=== PATIENT | male | born 1965 | race Caucasian/White ===

== ENCOUNTER → 2020-08-31 12:45 | Outpatient (CLI) | payer OTHER, SELFPAY ==
[2020-08-31] MEDS: COVID-19 VACC #1, MRNA(MOD) 100 MCG/0.5 ML VIAL IM (12:53)
== END ==
PROVIDERS: Family Provider Family Medicine; PCP Family Medicine; Visit Provider Internal Medicine
DX: Z23 Encounter for immunization (principal)
CPT/HCPCS: 0011A; 91301

== ENCOUNTER → 2020-09-29 12:47 | Outpatient (CLI) | payer OTHER, SELFPAY ==
[2020-09-29] MEDS: COVID-19 VACC #2, MRNA(MOD) 100 MCG/0.5 ML VIAL IM (12:55)
== END ==
PROVIDERS: Family Provider Family Medicine; PCP Family Medicine; Visit Provider Internal Medicine
DX: Z23 Encounter for immunization (principal)
CPT/HCPCS: 0012A; 91301

== ENCOUNTER 2021-08-04 17:26 | Emergency (ER) | payer SELFPAY ==
[2021-08-04 17:31] VITALS: BP 148/101; PULSE 132; RESP 19; TEMP 36.6; O2SAT 95; BMI 29.5
[2021-08-04 21:48] VITALS: BP 170/101; PULSE 113; RESP 17; O2SAT 98
[2021-08-04] MEDS: SODIUM CHLORIDE 0.9% 1,000 ML 1000 ML IV (22:01)
[2021-08-04 22:06] LABS: Add Manual Diff / Slide Review NO; Basophils Absolute Auto 100 /uL (0-100); Basophils Percent Auto 0.8 % (0-2); Eosinophils Absolute Auto 0 /uL (0-450); Eosinophils Percent Auto 0.3 % (2-4); Hematocrit 39.3 % (41-53); Hemoglobin 13.2 g/dL (13.5-17.5); Lymphocytes Absolute Auto 1500 /uL (1100-4500); Lymphocytes Percent Auto 12.5 % (25-40); Mean Corpuscular HGB Conc 33.5 % (30-36); Mean Corpuscular Hemoglobin 32.8 PG (26-34); Mean Corpuscular Volume 97.7 fL (80-100); Monocytes Absolute Auto 900 /uL (0-900); Monocytes Percent Auto 7.1 % (3-14); Neutrophils Absolute Auto 9700 /uL (1500-7000); Neutrophils Percent Auto 79.3 % (50-75); Platelet Count 199 X10^3/uL (150-400); Red Blood Cell Count 4.03 X10^6/uL (4.5-5.9); Red Cell Distribution Width 13.4 % (11.6-14.8); White Blood Cell Count 12.3 X10^3/uL (4.5-11.0)
[2021-08-04 23:26] VITALS: BP 117/82; PULSE 98; RESP 16
--- NOTE | 2021-08-05 00:06 | ED_ITS ---
HPI - Epistaxis General Chief complaint: Nasal Problem Stated complaint: NOSE BLEED Time Seen by Provider: 08/05/21 00:05 Source: patient Mode of arrival: Ambulatory History of Present Illness HPI Narrative: Patient is a 56-year-old male with no past medical history presenting today with epistaxis. He said he was at work when nose started from the right side. He had copious amounts of blood going into the sink and trash can. He try clamping and holding pressure it was not stopping. He waited in the emergency department for numerous hours he was noted to be tachycardic. Finally bleeding stopped. Heart rate improved hemoglobin hematocrit does not require any transfusion at this time. He is not on any anti-platelet or anticoagulation medication Related Data Home Medications Medication Instructions Recorded Confirmed No Known Home Medications 08/04/21 08/04/21 Allergies Allergy/AdvReac Type Severity Reaction Status Date / Time Sulfa (Sulfonamide Allergy Unknown Verified 08/04/21 17:34 Antibiotics) [SULFA (SULFONAMIDE ANTIBIOTICS)] Review of Systems Review of Systems Narrative: GENERAL: Denies chills,fever HEENT: See HPI RESPIRATORY: Denies dyspnea, cough, wheezing CARDIOVASCULAR: Denies chest pain, palpitations GASTROINTESTINAL: Denies nausea, vomiting MUSCULOSKELETAL: Denies extremity pain, injury SKIN: No rash, no laceration, no pruritus NEUROLOGIC: Denies weakness, dizziness, headache, numbness 8 point review of systems is negative except for those stated above and HPI Patient History Surgical History History of vasectomy Social History Smoking Status: Current every day smoker Smoking Status: Current every day smoker alcohol intake frequency: a few times a week Substance Use Type: marijuana Exam Initial Vital Signs Initial Vital Signs: Vital Signs Temperature 98 F 08/04/21 17:31 Pulse Rate 132 H 08/04/21 17:31 Respiratory Rate 19 08/04/21 17:31 Blood Pressure 148/101 H 08/04/21 17:31 Pulse Oximetry 95 08/04/21 17:31 GENERAL: Well-appearing, well-nourished and in no acute distress. NOSE: No active bleeding, no blood clot CARDIOVASCULAR: peripheral pulses in tact, cap refill <2 sec RESPIRATORY: No respiratory distress, speaks in full sentences without difficulty EXTREMITIES: Normal range of motion, no clubbing or edema. Neurovascularly intact NEUROLOGICAL: Cranial nerves II through XII grossly intact. Normal gait and speech. SKIN: Warm, dry, no petechiae, no rashes or lesions. Course Orders Ordered: ED Orders 08/04/21 21:49 CBC Auto Diff [Complete Blood Count AUTO DIFF] Stat Discontinued Medications Sodium Chloride (Normal Saline 0.9%) 1,000 mls @ 1,000 mls/hr IV BOLUS ONE Stop: 08/04/21 22:48 Last Infusion: 08/04/21 23:00 Dose: 0 mls/hr Documented by: Admin: 08/04/21 22:01 Dose: 1,000 mls/hr Documented by: KANDICE Oxymetazoline HCl (Oxymetazoline Nasal [place] 15 Ml) 2 sprays NASAL NOW ONE Stop: 08/05/21 00:26 Last Admin: 08/05/21 00:44 Dose: 2 sprays Documented by: WING Vital Signs Vital signs: Vital Signs - 8 hr 08/04/21 21:48 08/04/21 23:26 Pulse Rate 113 H 98 H Respiratory Rate 17 16 Blood Pressure 170/101 H 117/82 Pulse Oximetry 98 MDM - Epistaxis Lab Data Result diagrams: 08/04/21 21:49 Labs: Lab Results 08/04/21 Range/Units 21:49 WBC 12.3 H (4.5-11.0) X10^3/uL RBC 4.03 L (4.5-5.9) X10^6/uL Hgb 13.2 L (13.5-17.5) g/dL Hct 39.3 L (41-53) % MCV 97.7 (80-100) fL MCH 32.8 (26-34) PG MCHC 33.5 (30-36) % RDW 13.4 (11.6-14.8) % Plt Count 199 (150-400) X10^3/uL Neut % (Auto) 79.3 H (50-75) % Lymph % (Auto) 12.5 L (25-40) % [place] % (Auto) 7.1 (3-14) % Eos % (Auto) 0.3 L (2-4) % Baso % (Auto) 0.8 (0-2) % Neut # (Auto) 9700 H (3437-9139) /uL Lymph # (Auto) 1500 (1776-5317) /uL [place] # (Auto) 900 (0-900) /uL Eos # (Auto) 0 (0-450) /uL Baso # (Auto) 100 (0-100) /uL MDM Narrative Medical decision making narrative: At this time patient's bleeding has stopped for at least a couple of hours. Overall feeling better. It sounds as though he had quite a bit of bleeding is for number of hours. Which was probably the result of his tachycardia h emoglobin hematocrit and transfusion at this time. Discussion and education on epistaxis control and when to return to ED. All questions were addressed. Discharge Plan Departure Patient Disposition: Home Clinical Impression: Epistaxis Instructions: DI for Nosebleed Activity Restrictions/Additional Instructions: *You have been diagnosed with nose bleed *What to do: I am so thankful that your nose did stop bleeding. Do recommend putting a little bit of ointment in there such as antibiotic ointment just in the very front with a Q-tip to help provide some moisture. If nose bleed starts again please use nasal clamp for 30 minute You may also use Afrin 2 sprays up nostril that is bleeding If neither of those things works in the continue to have copious amounts of bleeding please return to emergency department immediately *Continue to take medications as directed Afrin as needed *Follow up with your primary care provider in 2-3 days or call [phone] *Return to ER if you should have persistent bleeding, dizziness, lightheadedness, shortness breath or any new, worsening or concerning symptoms Prescriptions: No Action No Known Home Medications 0RF Referrals: Rory Arrieta MD [Primary Care Provider] -
[2021-08-05] MEDS: OXYMETAZOLINE NASAL SPRAY 15 ML 2 SPRAYS NASAL (00:44)
== END 2021-08-05 00:35 | disposition home or self-care (01) ==
PROVIDERS: Emergency Provider Emergency Medicine; Family Provider Family Medicine; PCP Family Medicine
DX: R04.0 Epistaxis (principal); F17.200 Nicotine dependence, unspecified, uncomplicated
CPT/HCPCS: 36415; 85025; 96360; 99283; 99284; A9270

== ENCOUNTER → 2024-05-13 06:32 | Outpatient (CLI) | payer OTHER, MEDICAID, SELFPAY ==
--- NOTE | 2024-05-13 06:34 | DI.ECHO.S_ITS ---
[facility]+ [facility] : : [address] : : [place] : : [id number] : : Phone: [phone] Echocardiogram Report + + :Name: EDIS MOE Study Date: 05/13/2024 Height: 69 in : :[facility] ReadingLocation: Weight: 185 lb : : Gender: Male BSA: 2.0 m2 : :: 1965 Age: 58 yrs BP: 153/98 mmHg: :Reason For Study: HEART FAILURE : :Ordering Physician: SONAM STOVER Performed By: Noemi Mcmillan : :Referring: SONAM STOVER : + + Interpretation Summary 1. The left ventricle contractility is normal. Estimate ejection fraction is greater than 55% with no segmental wall motion abnormalities. Unable to comment on diastolic function. 2. The right ventricular contractility is normal. 3. No obvious intracardiac masses nor thrombi. 4. No hemodynamically significant pericardial effusion. Conclusion: Normal biventricular systolic function. Procedure: A two-dimensional transthoracic echocardiogram with color flow and Doppler was performed. The study quality was technically adequate. There is no prior echocardiogram noted for this patient. The patient was in sinus rhythm with heart rates between 59-71 bpm during the exam. Left Ventricle: The left ventricle is normal in size and wall thickness. The ejection fraction is estimated to be 55-60%. Pericardium/ Pleura There is no pericardial effusion. There is no pleural effusion. MMode/2D Measurements & Calculations LVIDd: 4.9 cm LVIDs: 3.5 cm FS: 27.3 % EPSS: 1.3 cm IVSd: 0.98 cm LVPWd: 0.92 cm LV adames. diameter/BSA (cm/m^2): 2.4 LV sys. diameter/BSA (cm/m^2): 1.8 Reading Physician:
== END ==
PROVIDERS: Family Provider Family Medicine; PCP Family Medicine; Referring Provider Internal Medicine; Visit Provider Internal Medicine
DX: I50.22 Chronic systolic (congestive) heart failure (principal)
CPT/HCPCS: 93307

== ENCOUNTER → 2024-08-21 09:45 | Outpatient (CLI) | payer OTHER, SELFPAY ==
[2024-08-21 10:30] LABS: Add Manual Diff / Slide Review NO; Basophils Absolute Auto 0 /uL (0-100); Basophils Percent Auto 0.7 % (0-2); Eosinophils Absolute Auto 200 /uL (0-450); Eosinophils Percent Auto 2.6 % (2-4); Hematocrit 42.8 % (41-53); Hemoglobin 14.7 g/dL (13.5-17.5); Lymphocytes Absolute Auto 1000 /uL (1100-4500); Lymphocytes Percent Auto 14.1 % (25-40); Mean Corpuscular HGB Conc 34.3 % (30-36); Mean Corpuscular Hemoglobin 34.7 PG (26-34); Mean Corpuscular Volume 101.3 fL (80-100); Monocytes Absolute Auto 700 /uL (0-900); Monocytes Percent Auto 9.6 % (3-14); Neutrophils Absolute Auto 5200 /uL (1500-7000); Platelet Count 162 X10^3/uL (150-400); Red Blood Cell Count 4.23 X10^6/uL (4.5-5.9); Red Cell Distribution Width 13.5 % (11.6-14.8); White Blood Cell Count 7.2 X10^3/uL (4.5-11.0)
[2024-08-21 10:35] LABS: Alanine Aminotransferase 67 IU/L (<50); Albumin 4.8 g/dL (3.5-5.0); Albumin Globulin Ratio 2.2 (1.0-2.8); Alkaline Phosphatase 157 U/L (38-126); Aspartate Aminotransferase 87 IU/L (17-59); BUN Creatinine Ratio 16.9 (6-22); Bilirubin Total 0.6 mg/dL (0.2-1.3); Blood Urea Nitrogen 15 mg/dL (9-20); Calcium 9.9 mg/dL (8.4-10.2); Carbon Dioxide 23 mmol/L (22-32); Chloride 102 mmol/L (98-107); Cholesterol 162 mg/dL (140-199); Estimated Glomerular Filt Rate > 60 mL/min (>60); Globulin 2.2 g/dL (1.7-4.1); Glucose 125 mg/dL (80-110); HDL Cholesterol 70 mg/dL (40-60); HEMOLYSIS < 15 (0-50); LDL Cholesterol Calculated 47 mg/dL (<100); Potassium 4.8 mmol/L (3.4-5.1); Sodium 136 mmol/L (137-145); Triglycerides 226 mg/dL (35-150)
[2024-08-21 11:04] LABS: Prostate Specific Antigen Scrn 87.4 ng/mL (0.1-4.0)
== END ==
LOC: LAB 09:46
PROVIDERS: Family Provider Family Medicine; PCP Family Medicine; Referring Provider Family Medicine; Visit Provider Family Medicine
DX: I63.9 Cerebral infarction, unspecified (principal); I10 Essential (primary) hypertension; E78.00 Pure hypercholesterolemia, unspecified; G45.9 Transient cerebral ischemic attack, unspecified; Z12.5 Encounter for screening for malignant neoplasm of prostate
CPT/HCPCS: 36415; 80053; 80061; 85025; G0103

== ENCOUNTER → 2024-09-07 07:01 | Outpatient (CLI) | payer OTHER, SELFPAY ==
--- NOTE | 2024-09-07 07:03 | DI.MRI.S_ITS ---
PROCEDURE: MR PELVIC PROSTATE PROTOCOL INDICATIONS: eval PSA 80's TECHNIQUE: Coronal HASTE, axial T1 FSE with fat saturation, 3-plane nonbreath-hold T2 FSE. After the administration of contrast, dynamic axial, delayed axial and coronal VIBE or 2-D FLASH with fat saturation through the pelvis. Diffusion weighted imaging and ADC was performed. COMPARISON: None. FINDINGS: Image quality: Diffusion weighted and dynamic contrast enhanced images are diagnostic. Prostate: Gland size is 4.4 x 4.1 x 3.6 cm; ellipsoid gland volume is 34 mL. Focus of intrinsic T1 hyperintense signal in the right base which could represent hemorrhage. Multiple BPH nodules. Lesion 1: Location: Left apex/mid gland peripheral zone Size: 1.7 x 1.5 cm, (11/07). T2W signal: Hypointense. DWI signal: Markedly hyperintense. ADC signal: Markedly hypointense. Enhancement: Yes. Extracapsular extension: No. No neurovascular involvement. PI-RADS score: 5 Genitourinary system: Bladder wall thickness is normal. Distal ureters are non distended. Bowel and peritoneum: No pathologic free pelvic fluid. Inferior colon and small bowel loops are normal in caliber. Diverticulosis. Nodes and vessels: No pelvic or inguinal adenopathy by size criteria. Iliac vessels are normal in caliber. Soft tissues: Fat containing left inguinal hernia. Right hydrocele. Bones: Marrow demonstrates normal overall signal, without lesions to suggest metastases. IMPRESSION: 1. Prominent prostate gland. Multiple BPH nodules. 2. Left apex/mid gland peripheral zone lesion measuring 1.7 cm. PI-RADS 5. 3. No enlarged lymph nodes. Dictated by: Quintin Dugan M.D. on 09/08/2024 at 10:10 Approved by: Quintin Dugan M.D. on 09/08/2024 at 10:21
== END ==
LOC: MRI 07:02
PROVIDERS: Family Provider Family Medicine; PCP Family Medicine; Referring Provider Family Medicine; Visit Provider Family Medicine
DX: N40.2 Nodular prostate without lower urinary tract symptoms (principal); N42.9 Disorder of prostate, unspecified; R97.20 Elevated prostate specific antigen [PSA]; K57.90 Diverticulosis of intestine, part unspecified, without perforation or abscess without bleeding; K40.90 Unilateral inguinal hernia, without obstruction or gangrene, not specified as recurrent; N43.3 Hydrocele, unspecified
CPT/HCPCS: 72197; A9579

== ENCOUNTER → 2024-09-18 09:41 | Outpatient (CLI) | payer OTHER, SELFPAY ==
[2024-09-18 10:32] LABS: Hemoglobin A1C% w Est Avg Glu 5.2 % (4.0-6.0)
[2024-09-18 10:36] LABS: Alanine Aminotransferase 75 IU/L (<50); Albumin 4.6 g/dL (3.5-5.0); Albumin Globulin Ratio 2.2 (1.0-2.8); Alkaline Phosphatase 157 U/L (38-126); Aspartate Aminotransferase 83 IU/L (17-59); BUN Creatinine Ratio 16.7 (6-22); Bilirubin Total 0.5 mg/dL (0.2-1.3); Blood Urea Nitrogen 13 mg/dL (9-20); Calcium 9.6 mg/dL (8.4-10.2); Carbon Dioxide 21 mmol/L (22-32); Chloride 106 mmol/L (98-107); Estimated Glomerular Filt Rate > 60 mL/min (>60); Globulin 2.1 g/dL (1.7-4.1); Glucose 121 mg/dL (80-110); HEMOLYSIS 16 (0-50); HEMOLYSIS < 15 (0-50); Iron 137 ug/dL (49-181); Potassium 4.9 mmol/L (3.4-5.1); Sodium 136 mmol/L (137-145); Total Protein 6.7 g/dL (6.3-8.2)
[2024-09-18 10:48] LABS: Percent Iron Saturation 36 % (20-50); Total Iron Binding Capacity 379 ug/dL (261-462); Transferrin 317 mg/dL (206-381)
[2024-09-18 11:28] LABS: Vitamin B12 272 pg/mL (239-931)
[2024-09-19 08:12] LABS: PSA Free % 7.1 % (.); PSA, Total 72.9 ng/mL (0.0-4.0)
== END ==
PROVIDERS: Family Provider Family Medicine; PCP Family Medicine; Referring Provider Family Medicine; Visit Provider Family Medicine
DX: R79.89 Other specified abnormal findings of blood chemistry (principal); D64.9 Anemia, unspecified; R97.20 Elevated prostate specific antigen [PSA]; E78.00 Pure hypercholesterolemia, unspecified
CPT/HCPCS: 36415; 80053; 82607; 83036; 83540; 83550; 84153; 84154

== ENCOUNTER → 2024-09-26 06:57 | Outpatient (CLI) | payer OTHER, SELFPAY ==
--- NOTE | 2024-09-26 06:58 | DI.US.S_ITS ---
PROCEDURE: US ABDOMEN LIMITED INDICATIONS: POSSIBLE PROSTATE CANCER. ?LIVER METASTASIS TECHNIQUE: Real-time scanning was performed of the abdominal and retroperitoneal organs, with image documentation. COMPARISON: [facility], , MR PELVIC PROSTATE PROTOCOL, 09/07/2024, 8:19. FINDINGS: Liver: Increased liver echogenicity with posterior attenuation, most consistent with moderate to severe steatosis. Gallbladder: No gallstones. No wall thickening. No pericholecystic edema. Negative sonographic Barajas's sign. Biliary ducts: Intrahepatic bile ducts are non-dilated. Extrahepatic bile duct caliber measures 5 mm. Normal is 6-7 mm or less in diameter, or 10 mm or less post-cholecystectomy. Pancreas: Visualized portions of the pancreas are sonographically normal. Miscellaneous: No free abdominal fluid. IMPRESSION: Hepatic steatosis. In the absence of alcohol use or other confounding factors, elevated LFTs may indicate ucekyzdtu-epqmgozgiav-qktzmgdtaq steatohepatitis (MASH). No liver lesion. Consider PMSA-PET given the PI-RADS 5 lesion. Dictated by: Bruce So M.D. on 09/26/2024 at 8:44 Approved by: Bruce So M.D. on 09/26/2024 at 8:48
== END ==
PROVIDERS: Family Provider Family Medicine; PCP Family Medicine; Referring Provider Family Medicine; Visit Provider Family Medicine
DX: R79.89 Other specified abnormal findings of blood chemistry (principal); R93.89 Abnormal findings on diagnostic imaging of other specified body structures; K76.0 Fatty (change of) liver, not elsewhere classified
CPT/HCPCS: 76705

== ENCOUNTER → 2024-10-24 07:22 | Outpatient (CLI) | payer OTHER, SELFPAY ==
--- NOTE | 2024-10-24 07:23 | DI.US.S_ITS ---
PROCEDURE: US SCROTUM INDICATIONS: Evaluate right hemiscrotal enlargement history of hydrocele TECHNIQUE: Real-time scanning was performed of the scrotum and testicles, with image documentation. Color and pulse Doppler interrogation was performed of both testicles. COMPARISON: None. FINDINGS: Right: Testicle is normal in size at 2.6 x 2.3 x 4.3 cm, and homogenous in echotexture. Epididymis is normal in overall size and morphology. A 140 cc simple hydrocele is present on the right. No varicoceles. Overlying scrotal skin is normal in thickness. Left: Testicle is normal in size at 3.6 x 1.8 x 4.1 cm, and homogeneous in echotexture. Mild displacement leftward by right-sided hydrocele. Epididymis is normal in overall size and morphology. No hydrocele or varicoceles. Overlying scrotal skin is normal in thickness. Doppler: Color and pulse Doppler demonstrate normal and symmetric arterial flow in both testicles. IMPRESSION: Prominent 140 cc simple hydrocele on the right, no testicular or epididymal mass lesion found. No varicoceles. Dictated by: Mohsen Albert M.D. on 10/24/2024 at 16:30 Approved by: Mohsen Albert M.D. on 10/24/2024 at 16:33
== END ==
LOC: US 07:22
PROVIDERS: Family Provider Family Medicine; PCP Family Medicine; Referring Provider Urology; Visit Provider Urology
DX: N50.89 Other specified disorders of the male genital organs (principal); N43.3 Hydrocele, unspecified
CPT/HCPCS: 76870

== ENCOUNTER → 2024-11-29 07:49 | Outpatient (CLI) | payer OTHER, SELFPAY ==
[2024-11-29 08:29] LABS: Estimated Glomerular Filt Rate > 60 mL/min (>60)
== END ==
PROVIDERS: Family Provider Family Medicine; PCP Family Medicine; Referring Provider Urology; Visit Provider Urology
DX: C61 Malignant neoplasm of prostate (principal)
CPT/HCPCS: 36415; 82565

== ENCOUNTER → 2024-11-29 07:49 | Outpatient (CLI) | payer OTHER, SELFPAY ==
--- NOTE | 2024-11-29 07:51 | DI.CT.S_ITS ---
PROCEDURE: CT CHEST ABD PEL W CON INDICATIONS: 59 y/o M w/ high-risk prostate cancer, eval for mets TECHNIQUE: After the administration of intravenous contrast, 5 mm thick sections acquired from the lung apices to the symphysis. 5 mm coronal and sagittal reformats were performed, with additional 7 mm MIP reformats through the lungs. For radiation dose reduction, the following was used: automated exposure control, adjustment of mA and/or kV according to patient size. COMPARISON: [facility], MR, MR PELVIC PROSTATE PROTOCOL, 09/07/2024, 8:19. FINDINGS: Image quality: Diagnostic Lungs and pleura: No overtly suspicious pulmonary nodule. Scattered atelectasis. No dense airspace consolidation or pleural effusion. Mediastinum, heart, and esophagus: Coronary calcifications. Normal heart size. No enlarged lymph nodes technically by size criteria. Slightly prominent posterior right mediastinal lymph node measures 0.7 cm in short axis (08/03), attention on follow-up. Chest wall and thyroid: Unremarkable Liver: Hepatic steatosis. No suspicious focal lesion Gallbladder and biliary system: Unremarkable, nondilated Pancreas: No ductal dilation Spleen: Nonenlarged Adrenals: No discrete nodules Kidneys: No solid renal mass or hydronephrosis Vessels and lymph nodes: Main portal vein is patent. No enlarged lymph nodes in the pelvis or retroperitoneum by size criteria. Bowel and peritoneum: No evidence of small bowel obstruction. Colonic diverticulosis. Moderate rectal stool ball. Wall thickening seen throughout the sigmoid. No drainable abscess or ascites. Body wall: Small fat containing left inguinal hernia. Pelvis: Bladder is under distended. Asymmetric enhancement seen throughout the left prostate, likely primary malignancy Bones: No obvious aggressive bone lesions identified. There are degenerative osseous changes. Likely old left rib fractures are seen. Indeterminate mild sclerosis is seen in the right lateral sacrum (2/156). Age-indeterminate fracture and adjacent bone fragment of L1, probably nonacute IMPRESSION: No enlarged lymph nodes by size criteria. No definite disease above the diaphragm. Indeterminate sclerosis in the right lateral sacrum. No definite aggressive features. Prostate (PSMA) PET-CT is the highest sensitivity modality to detect micro jose metastases and bone lesions Nuclear medicine bone scan could also be ordered for osseous disease. Colonic diverticula and wall thickening throughout the sigmoid colon, possibly chronic diverticular disease. Consider colonoscopy correlation if not recently obtained. Enhancement within the left prostate, likely the primary malignancy. Other incidental findings above. Dictated by: Jose Ledezma M.D. on 11/30/2024 at 0:24 Approved by: Jose Ledezma M.D. on 11/30/2024 at 0:30
== END ==
LOC: CT 07:51
PROVIDERS: Family Provider Family Medicine; PCP Family Medicine; Referring Provider Urology; Visit Provider Urology
DX: C61 Malignant neoplasm of prostate (principal); K76.0 Fatty (change of) liver, not elsewhere classified; K57.90 Diverticulosis of intestine, part unspecified, without perforation or abscess without bleeding; K40.90 Unilateral inguinal hernia, without obstruction or gangrene, not specified as recurrent
CPT/HCPCS: 36415; 71260; 74177; 82565; Q9967

== ENCOUNTER → 2024-12-26 10:49 | Outpatient (CLI) | payer OTHER, SELFPAY ==
--- NOTE | 2024-12-26 10:50 | DI.NM.S_ITS ---
PROCEDURE: NM BONE SCAN WHOLE BODY RADIOPHARMACEUTICAL: 21.5 mCi Tc-99m MDP IV. INDICATIONS: 59 y/o M w/ high-risk prostate cancer, eval for mets TECHNIQUE: Delayed whole-body scintigrams were obtained approximately 3-4 hours after intravenous injection of radiotracer. Anterior and posterior views were acquired from vertex to feet. Additional left and right oblique views of the pelvis were obtained. COMPARISON: Located Within [facility], CT, CT CHEST ABD PEL W CON, 11/29/2024, 8:37. FINDINGS: Upper and lower extremity degenerative changes are present. Radiotracer excretion is seen in the urinary system. There is a small focus of uptake in the right mid anterior rib, nonspecific. No high suspicion focus of radiotracer uptake identified. Focus of uptake in the left lower posterior rib may be a fracture. IMPRESSION: No high suspicion focus of radiotracer uptake is identified. There is a small focus of uptake in the right anterior mid rib, nonspecific. Focus of uptake in the left posterior rib may be a fracture. Close attention on follow- up is suggested. Dictated by: Jose Ledezma M.D. on 12/29/2024 at 15:58 Approved by: Jose Ledezma M.D. on 12/29/2024 at 16:01
== END ==
LOC: NUCM 10:49
PROVIDERS: Family Provider Family Medicine; PCP Family Medicine; Referring Provider Urology; Visit Provider Urology
DX: C61 Malignant neoplasm of prostate (principal)
CPT/HCPCS: 78306; A9503

== ENCOUNTER → 2025-03-25 09:07 | Outpatient (CLI) | payer OTHER, SELFPAY ==
[2025-03-25 10:11] LABS: Alanine Aminotransferase 58 IU/L (<50); Albumin 4.6 g/dL (3.5-5.0); Albumin Globulin Ratio 2.0 (1.0-2.8); Alkaline Phosphatase 143 U/L (38-126); Blood Urea Nitrogen 11 mg/dL (9-20); Calcium 9.8 mg/dL (8.4-10.2); Carbon Dioxide 25 mmol/L (22-32); Chloride 101 mmol/L (98-107); Cholesterol 161 mg/dL (140-199); Estimated Glomerular Filt Rate > 60 mL/min (>60); Globulin 2.3 g/dL (1.7-4.1); Glucose 123 mg/dL (70-99); HDL Cholesterol 74 mg/dL (40-60); HEMOLYSIS < 15 (0-50); Potassium 5.0 mmol/L (3.4-5.1); Sodium 137 mmol/L (137-145); Total Protein 6.9 g/dL (6.3-8.2); Triglycerides 170 mg/dL (35-150)
== END ==
PROVIDERS: Family Provider Family Medicine; PCP Family Medicine; Referring Provider Family Medicine; Visit Provider Family Medicine
DX: Z12.5 Encounter for screening for malignant neoplasm of prostate (principal); R79.89 Other specified abnormal findings of blood chemistry; C61 Malignant neoplasm of prostate
CPT/HCPCS: 36415; 80053; 80061; G0103

== ENCOUNTER → 2025-04-28 09:22 | Outpatient (CLI) | payer OTHER, SELFPAY ==
[2025-04-28 10:00] LABS: Add Manual Diff / Slide Review NO; Hematocrit 42.9 % (41-53); Hemoglobin 14.8 g/dL (13.5-17.5); Lymphocytes Absolute Auto 1000 /uL (1100-4500); Mean Corpuscular HGB Conc 34.5 % (30-36); Mean Corpuscular Hemoglobin 35.3 PG (26-34); Mean Corpuscular Volume 102.1 fL (80-100); Platelet Count 147 X10^3/uL (150-400)
[2025-04-28 10:24] LABS: Blood Urea Nitrogen 10 mg/dL (9-20); Calcium 9.5 mg/dL (8.4-10.2); Carbon Dioxide 23 mmol/L (22-32); Chloride 105 mmol/L (98-107); Estimated Glomerular Filt Rate > 60 mL/min (>60); Glucose 125 mg/dL (70-99); HEMOLYSIS < 15 (0-50); Potassium 5.0 mmol/L (3.4-5.1); Sodium 138 mmol/L (137-145)
== END ==
PROVIDERS: Family Provider Family Medicine; PCP Family Medicine; Referring Provider Urology; Visit Provider Urology
DX: C61 Malignant neoplasm of prostate (principal)
CPT/HCPCS: 36415; 80048; 85025

== ENCOUNTER 2025-05-06 20:59 | Emergency (ER) | payer OTHER, SELFPAY ==
[2025-05-06 21:11] VITALS: BP 111/65; PULSE 75; RESP 18; TEMP 36.8; O2SAT 97; BMI 28.8
[2025-05-07 00:26] VITALS: BP 124/60; PULSE 74; O2SAT 100
[2025-05-07 00:30] VITALS: BP 122/60; PULSE 70; O2SAT 97
--- NOTE | 2025-05-07 00:46 | ED_ITS ---
HPI - General Adult General Chief complaint: Urogenital-Male Stated complaint: urogenital male / blood in catheter Time Seen by Provider: 05/07/25 00:40 Source: patient Mode of arrival: Ambulatory History of Present Illness HPI narrative: 59-year-old male status post radical prostatectomy robotic surgery [facility] overnight stay discharge this morning, we will see his urologist in [place] on Sunday in follow up, wearing leg bag collection of his Taylor catheter, which seemed to have some blood and possible clogging. No fevers or chills. He has not had a bowel movement since day before yesterday, taking stool softeners, but is passing gas. Related Data Home Medications ?Medication ?Instructions ?Recorded ?Confirmed aspirin 81 mg chewable tablet 81 mg PO DAILY 04/17/24 04/02/25 atorvastatin 80 mg tablet 80 mg PO ONCE PM 04/17/24 lisinopril 5 mg tablet 5 mg PO DAILY 04/17/2404/02 Previous Rx's ?Medication ?Instructions ?Recorded clotrimazole-betamethasone 1 1 applic topical BID #45 grams 12/02/24 %-0.05 % topical cream metoprolol succinate 50 mg 50 mg PO BID #180 tabs 03/12 09/02 tablet,extended release 24 hr Allergies Allergy/AdvReac Type Severity Reaction Status Date / Time Sulfa (Sulfonamide Allergy Unknown Verified 04/02/25 09:35 Antibiotics) (SULFA (SULFONAMIDE ANTIBIOTICS)) Patient History Medical History Prostate cancer managed with active surveillance Scrotal mass Abnormal findings on imaging test Coronary stent patent Elevated LFTs Anemia Elevated PSA measurement Preventative health care Myocardial infarction Surgical History History of vasectomy Social History marital status: unmarried,single Previous occupational history: [employer] Smoking Status: Never smoker Tobacco: How many years used: 30 alcohol intake: current caffeine: Yes Smoking Status: Never smoker alcohol intake frequency: a few times a week Exam Narrative Exam Narrative: GENERAL: Well-developed patient, in mild distress. HEAD: Atraumatic. Normocephalic. EYES: Pupils equal round and reactive. Extraocular motions intact. No scleral icterus. No injection or drainage. ENT: Nose without bleeding, purulent drainage. Throat without erythema, tonsillar hypertrophy or exudate. Airway patent. NECK: Trachea midline. Non tender CARDIOVASCULAR: Regular rate and rhythm without murmurs, gallops, or rubs. RESPIRATORY: Clear to auscultation. Breath sounds equal bilaterally. No wheezes, rales, or rhonchi. GASTROINTESTINAL: Abdomen surgical port incision sites, localized ecchymoses as expected status post recent radical anterior approach robotic surgery, no significant tenderness, no crepitance. : Taylor catheter in place, in collection bag there is brownish fluid, no obvious red blood or clot. Tubing seems to be free flowing after nurse flushing. EXTREMITIES: No edema or joint tenderness. BACK: Nontender without deformity or crepitance. No flank tenderness. NEURO: AOx3. Motor functions grossly nonfocal. SKIN: No rash or erythema of visible areas Initial Vital Signs Initial Vital Signs: Vital Signs Temperature 98.3 F 05/06/25 21:11 Pulse Rate 75 05/06/25 21:11 Respiratory Rate 18 05/06/25 21:11 Blood Pressure 111/65 05/06/25 21:11 Pulse Oximetry 97 05/06/25 21:11 Oxygen Delivery Method Room Air 05/06/25 21:11 Course Orders Ordered: ED Orders 05/07/25 01:10 Urinalysis and Microscopic Stat 05/07/25 02:17 Urine Culture Stat Vital Signs Vital signs: Vital Signs - 8 hr 05/07/25 00:26 05/07/25 00:26 05/07/25 00:30 Pulse Rate 74 70 Blood Pressure 124/60 Pulse Oximetry 100 97 05/07/25 00:30 05/07/25 01:00 05/07/25 01:00 Pulse Rate 74 Blood Pressure 122/60 121/69 Pulse Oximetry 97 Medical Decision Making Lab Data Lab results reviewed: Yes I reviewed the patient's lab results. Lab results narrative: Urinalysis shows some blood, without bacteria or inflammatory markers. No urine culture indicated by protocol Labs: Lab Results 05/07/25 Range/Units 01:10 Urine Color Color Urine Appearance Turbid Urine pH TNP Ur Specific [place] TNP Urine Protein TNP Urine Glucose (UA) TNP Urine Ketones TNP Urine Occult Blood TNP Urine Nitrate TNP Urine Bilirubin TNP Urine Urobilinogen TNP Ur Leukocyte Esterase TNP Urine RBC >100/hpf H (0-5/HPF) Urine WBC 0-1/hpf (0-5/HPF) Ur Squamous Epith Cells 0-1 /hpf (0-5/HPF) Amorphous Sediment 3+ Urine Bacteria Few (2-10) H (None) Granular Casts 10-30/lpf (None) Ur Culture Indicated? Cult not indicated Vol Urine Centrifuged 10ml (spun) MDM Narrative Medical decision making narrative: 59-year-old male status post prostatectomy robotic yesterday [facility], discharged today, catheter in place, some blood in catheter felt to be clogged. Flushed by nursing. Remaining blood in tubing does not appear to be bloody. No further workup for now, patient agreeable. Follow up with his [facility] urologist advised. Return precautions discussed. Discharged home with support friend. Discharge Plan Departure Patient Disposition: Home Clinical Impression: Taylor catheter problem Activity Restrictions/Additional Instructions: Status post robotic radical prostatectomy surgery Located within [facility] yesterday with released with the hospital today urinary catheter in place, some blood appearance, concerned that might be dislodged. Nursing after triage was able to flush her catheter, no ongoing bleeding, free flow urine through the tubing. Retention balloon of the catheter was tested, seems to be in good position. No further evaluation for now. Follow up on Sunday with your [place] urologist as planned. Return earlier to this/nearest emergency department for any change worsening symptoms or any concerns prior. Prescriptions: No Action clotrimazole-betamethasone 1-0.05 % cream 1 applic topical BID Qty: 45 1RF lisinopril 5 mg tablet 5 mg PO DAILY atorvastatin 80 mg tablet 80 mg PO ONCE PM aspirin 81 mg tablet,chewable 81 mg PO DAILY metoprolol succinate 50 mg tablet extended release 24 hr 50 mg PO BID Qty: 180 3RF Referrals: Dorian Bartholomew DO [Primary Care Provider, Family Practice] Stand Alone Forms: Patient Portal/API
[2025-05-07 01:00] VITALS: BP 121/69; PULSE 74; O2SAT 97
--- NOTE | 2025-05-07 01:11 | PC.NURSE ---
pt came into ED for zurita catheter not draining stating it feels like it is coming out. pt has 18fr 2way zurita catheter. Catheter checked for placed and irrigated with sterile water. Catheter appears to be placed correctly and catheter is draining after irrigation
[2025-05-07 01:33] LABS: Appearance Urine UA TURBID
[2025-05-07 01:39] LABS: Culture Indicated Urine Cult Not Indicated
== END 2025-05-07 01:40 | disposition home or self-care (01) ==
PROVIDERS: Emergency Provider Emergency Medicine; Family Provider Family Medicine; PCP Family Medicine
DX: T83.9XXA Unspecified complication of genitourinary prosthetic device, implant and graft, initial encounter (principal); Y73.1 Therapeutic (nonsurgical) and rehabilitative gastroenterology and urology devices associated with adverse incidents
CPT/HCPCS: 81001; 99282

== ENCOUNTER 2025-05-08 19:26 | Emergency (ER) | payer OTHER, SELFPAY ==
[2025-05-08] VITALS (13 sets, daily range): BP systolic 110–149; BP diastolic 55–98; PULSE 108–125; RESP 12–22; TEMP 38.3; O2SAT 93–99; BMI 29.0
--- NOTE | 2025-05-08 19:32 | DI.CT.S_ITS ---
PROCEDURE: CT CHEST ABD PEL W CON INDICATIONS: Sepsis TECHNIQUE: After the administration of intravenous contrast, 5 mm thick sections acquired from the lung apices to the symphysis. 5 mm coronal and sagittal reformats were performed, with additional 7 mm MIP reformats through the lungs. For radiation dose reduction, the following was used: automated exposure control, adjustment of mA and/or kV according to patient size. COMPARISON: [facility], CT, CT CHEST ABD PEL W CON, 11/29/2024, 8:37. FINDINGS: Image quality: Excellent. CHEST: Lower Neck: No enlarged lymph nodes. Thyroid: No thyroid nodules which require sonographic follow up, per consensus guidelines. Axillae: No enlarged lymph nodes. Chest Wall: Unremarkable. Lungs and Pleura: No pneumothorax or pleural effusions. No consolidation or suspicious nodules. Heart: Heart size is normal. No pericardial effusion. Thoracic Vessels: The aorta and pulmonary arteries demonstrate normal size. Mediastinum and [place]: No enlarged lymph nodes. Esophagus: No wall thickening. No hiatal hernia. ABDOMEN: Liver: No solid mass. Gallbladder: No radiopaque gallstones or wall thickening. Biliary ducts: No biliary dilation. Pancreas: No ductal dilation. Spleen: Size is within normal limits. Adrenal Glands: No adrenal nodules. Kidneys and Ureters: No hydronephrosis. No solid mass. No complex renal cystic lesion which requires follow up. Stomach and Bowel: Normal colonic caliber, without significant wall thickening. Peritoneum: Prominent free air is identified within the abdomen and pelvis. Prominent cluster is present in the left pelvic sidewall. However, air is present within the non dependent upper abdomen excluding into the subcutaneous fat at the level the ventral hernia. There is scattered free fluid within the central pelvis. Largest more localized fluid is in the right lower pelvis measuring 1.4 cm. Ventral Wall: Fat containing ventral hernia. Abdominal Nodes: No retroperitoneal or mesenteric adenopathy by size criteria. Vessels: Aorta and inferior vena cava are normal in size. PELVIS: Pelvic Organs: Unremarkable. Bladder: Air is noted within the bladder wall. Taylor catheter is present. Pelvic Nodes: No enlarged lymph nodes. Miscellaneous: Bilateral fat containing inguinal hernias. Air is present within the inguinal hernia most prominent on the left. Bones: No aggressive osseous abnormality. IMPRESSION: Prominent free air within the abdomen and pelvis. It is noted that patient is status post recent prostate surgery. This could be postoperative. However, given appearance of scattered fluid, other etiology such as bowel perforation cannot be definitively excluded. Recommend continued interval follow-up for development of abscess as clinically indicated. Air is present within the bladder wall, again likely related to recent surgery. The above findings were discussed with Dr. Dilip Del Toro on 05/08/2025 at 9:46 p.m. Dictated by: Jana Castellanos M.D. on 05/08/2025 at 21:40 Approved by: Jana Castellanos M.D. on 05/08/2025 at 21:48
--- NOTE | 2025-05-08 19:33 | PC.NURSE ---
see triage note for c/o pt states he just isn't feeling good. was not given antibiotics to take at home
--- NOTE | 2025-05-08 19:35 | ED_ITS ---
HPI - General Adult General Chief complaint: Urogenital-Male Stated complaint: Code Sepsis/Fever s/p surgery UW Time Seen by Provider: 05/08/25 19:32 History of Present Illness HPI narrative: Patient brought in by ambulance from home. Patient is postop day 3 status post laparoscopic prostatectomy at [facility]. Local urologist here sent patient here for the procedure. Patient being treated for prostate cancer. History of MT in the past. History of cardiac stents. Patient is Cardiology Dr. Stover with [facility]. Patient does have Atylor catheter in place. Vital signs noted tachycardia and fever. Took fever medication at 6:00 p.m. prior to arrival. Related Data Home Medications ?Medication ?Instructions ?Recorded ?Confirmed aspirin 81 mg chewable tablet 81 mg PO DAILY 04/17/24 04/02/25 atorvastatin 80 mg tablet 80 mg PO ONCE PM 04/17/24 lisinopril 5 mg tablet 5 mg PO DAILY 04/17/2404/02 acetaminophen 500 mg tablet 500 mg PO 05/08/25 ibuprofen 600 mg tablet PO 05/08/25 oxycodone 5 mg tablet PO 05/08/25 Previous Rx's ?Medication ?Instructions ?Recorded clotrimazole-betamethasone 1 1 applic topical BID #45 grams 12/02/24 %-0.05 % topical cream metoprolol succinate 50 mg 50 mg PO BID #180 tabs 03/12 09/02 tablet,extended release 24 hr Allergies Allergy/AdvReac Type Severity Reaction Status Date / Time Sulfa (Sulfonamide Allergy Unknown Verified 04/02/25 09:35 Antibiotics) (SULFA (SULFONAMIDE ANTIBIOTICS)) Review of Systems Review of Systems Narrative: GENERAL: Positive chills, fatigue, malaise, fever, sweats. HEENT: Negative sinus pain, ear pain, sore throat RESPIRATORY: Negative dyspnea, cough CARDIOVASCULAR: Negative chest pain, palpitations GASTROINTESTINAL: Negative vomiting, nausea, abdominal pain : Negative dysuria, frequency, hematuria MUSCULOSKELETAL: Negative muscle or bony pain SKIN: Negative rash, skin lesions NEUROLOGIC: Negative weakness, numbness ROS Unobtainable: All systems reviewed & are unremarkable except as noted in HPI and below Patient History Medical History Prostate cancer managed with active surveillance Scrotal mass Abnormal findings on imaging test Coronary stent patent Elevated LFTs Anemia Elevated PSA measurement Preventative health care Myocardial infarction Surgical History History of vasectomy Social History marital status: unmarried,single Previous occupational history: Restauranteur Tobacco: How many years used: 30 alcohol intake: current caffeine: Yes alcohol intake frequency: a few times a week Exam Narrative Exam Narrative: GENERAL: in no distress, not toxic not dyspneic HEAD: Normocephalic. EYES: Pupils equal round ENT: Mucous membranes moist. NECK: Trachea midline. CARDIOVASCULAR: Regular rate and rhythm RESPIRATORY: Clear to auscultation. Breath sounds equal bilaterally. No wheezes, rales, or rhonchi. GASTROINTESTINAL: Abdomen soft, mild tenderness diffusely abdomen but no peritoneal signs no guarding or rebound. Healing ecchymotic skinning from surgical scars which are clean dry intact. EXTREMITIES: No gross deformities. NEURO: AOx4. Clear speech SKIN: Warm and dry PSYCH: Not anxious, is cooperative Initial Vital Signs Initial Vital Signs: Vital Signs Temperature 100.9 F H 05/08/25 19:25 Pulse Rate 125 H 05/08/25 19:25 Respiratory Rate 20 05/08/25 19:25 Blood Pressure 144/98 H 05/08/25 19:25 Pulse Oximetry 99 05/08/25 19:25 Oxygen Delivery Method Room Air 05/08/25 19:25 Course Orders Ordered: Discontinued Medications Piperacillin Sod/Tazobactam (Sod 4.5 gm/ Sodium Chloride) 100 mls @ 200 mls/hr IV STAT ONE Stop: 05/08/25 19:33 Last Infusion: 05/08/25 21:16 Dose: Infused Documented By: Admin: 05/08/25 20:27 Dose: 200 mls/hr Documented By: CLARA Sodium Chloride (Normal Saline 0.9%) 1,000 mls @ 1,000 mls/hr IV BOLUS ONE Stop: 05/08/25 20:34 Last Infusion: 05/08/25 21:16 Dose: Infused Documented By: Admin: 05/08/25 20:00 Dose: 1,000 mls/hr Documented By: CLARA Acetaminophen (Ofirmev) 1,000 mg in 100 mls @ 400 mls/hr IV NOW ONE Stop: 05/08/25 21:00 Last Infusion: 05/08/25 21:53 Dose: Infused Documented By: Admin: 05/08/25 21:26 Dose: 400 mls/hr Documented By: CLARA Sodium Chloride (Normal Saline 0.9%) 1,000 mls @ 125 mls/hr IV CONT NIKI Last Infusion: 05/09/25 08:07 Dose: Infused Documented By: Admin: 05/09/25 00:00 Dose: 125 mls/hr Documented By: CLARA Piperacillin Sod/Tazobactam (Sod 297.45 gm/ Sodium Chloride) 100 mls @ 200 mls/hr IV Q8HR ONE Stop: 05/09/25 04:01 Piperacillin Sod/Tazobactam (Sod 3.375 gm/ Sodium Chloride) 100 mls @ 25 mls/hr IV Q8H [facility] Stop: 05/09/25 06:59 Last Infusion: 05/09/25 07:15 Dose: Infused Documented By: Admin: 05/09/25 03:25 Dose: 25 mls/hr Documented By: CLARA Morphine Sulfate (Morphine 4 Mg/Ml Inj) 4 mg IV NOW ONE Stop: 05/08/25 21:17 Last Admin: 05/08/25 21:20 Dose: 4 mg Documented By: CLARA Morphine Sulfate (Morphine 4 Mg/Ml Inj) 4 mg IV Q3HR PRN PRN Reason: Pain, Moderate (4-6) Last Admin: 05/09/25 10:10 Dose: 4 mg Documented By: Admin: 05/09/25 06:10 Dose: 4 mg Documented By: Admin: 05/09/25 02:40 Dose: 4 mg Documented By: Admin: 05/08/25 22:58 Dose: 4 mg Documented By: CLARA Ondansetron HCl (Ondansetron 4 Mg/2 Ml Inj) 4 mg IV NOW ONE Stop: 05/08/25 21:17 Last Admin: 05/08/25 21:19 Dose: 4 mg Documented By: CLARA Vital Signs Vital signs: Vital Signs - 8 hr 05/08/25 19:25 05/08/25 19:55 05/08/25 20:00 Temperature 100.9 F H Pulse Rate 125 H 124 H 120 H Respiratory Rate 20 14 13 Blood Pressure 144/98 H Pulse Oximetry 99 97 96 Oxygen Delivery Method Room Air 05/08/25 20:15 05/08/25 20:15 05/08/25 20:30 Temperature Pulse Rate 118 H 119 H Respiratory Rate 12 22 Blood Pressure 146/66 H Pulse Oximetry 97 97 Oxygen Delivery Method 05/08/25 20:30 05/08/25 21:12 05/08/25 21:30 Temperature Pulse Rate 122 H 116 H Respiratory Rate Blood Pressure 149/70 H Pulse Oximetry 97 94 Oxygen Delivery Method Medical Decision Making Lab Data 05/08/25 20:08 05/08/25 20:08 Labs: Lab Results 05/08/25 05/08/25 05/08/25 Range/Units 19:34 20:08 20:14 WBC 6.8 (4.5-11.0) X10^3/uL RBC 2.53 L (4.5-5.9) X10^6/uL Hgb 9.0 L (13.5-17.5) g/dL Hct 26.2 L (41-53) % MCV 103.5 H (80-100) fL MCH 35.8 H (26-34) PG MCHC 34.5 (30-36) % RDW 13.6 (11.6-14.8) % Plt Count 123 L (150-400) X10^3/uL Neut % (Auto) 88.3 H (50-75) % Lymph % (Auto) 4.3 L (25-40) % [place] % (Auto) 7.0 (3-14) % Eos % (Auto) 0.2 L (2-4) % Baso % (Auto) 0.2 (0-2) % Neut # (Auto) 6000 (0234-1796) /uL Lymph # (Auto) 300 L (0734-9802) /uL [place] # (Auto) 500 (0-900) /uL Eos # (Auto) 0 (0-450) /uL Baso # (Auto) 0 (0-100) /uL PT 12.1 (9.4-12.5) SECONDS INR 1.1 (0.9-1.3) APTT 26 (25.1-36.5) SECONDS VBG pH 7.38 (7.33-7.43) VBG pCO2 34.2 L (45-50) mmHg VBG pO2 50 H (35-45) mmHg VBG HCO3 20 L (24-28) mmol/L VBG Total CO2 19 L (24-29) mmol/L VBG O2 Saturation 85 H (70-75) % VBG Base Excess -4.4 L (0-4) mmol/L FiO2 % 21.0 % % Sodium 133 L (137-145) mmol/L Potassium 4.5 (3.4-5.1) mmol/L Chloride 105 (98-107) mmol/L Carbon Dioxide 18 L (22-32) mmol/L BUN 34 H (9-20) mg/dL Creatinine 1.29 H (0.66-1.25) mg/dL Estimated GFR > 60 (>60) mL/min BUN/Creatinine Ratio 26.4 H (6-22) Glucose 113 H (70-99) mg/dL Lactate 1.6 (0.7-2.1) mmol/L Calcium 8.4 (8.4-10.2) mg/dL Total Bilirubin 1.0 (0.2-1.3) mg/dL AST 45 (17-59) IU/L ALT 32 (<50) IU/L Alkaline Phosphatase 141 H (38-126) U/L Total Protein 6.3 (6.3-8.2) g/dL Albumin 3.8 (3.5-5.0) g/dL Globulin 2.5 (1.7-4.1) g/dL Albumin/Globulin Ratio 1.5 (1.0-2.8) Procalcitonin 0.268 (<0.5) ng/mL Urine Color [place] Urine Appearance Slightly cloudy Urine pH TNP Ur Specific [place] TNP Urine Protein TNP Urine Glucose (UA) TNP Urine Ketones TNP Urine Occult Blood TNP Urine Nitrate TNP Urine Bilirubin TNP Urine Urobilinogen TNP Ur Leukocyte Esterase TNP Urine RBC 10-30/hpf H (0-5/HPF) Urine WBC 0-1/hpf (0-5/HPF) Ur Squamous Epith Cells 1-5 /hpf (0-5/HPF) Urine Bacteria Few (2-10) H (None) Urine Mucus 1+ H (Negative) Ur Culture Indicated? Cult not indicated Vol Urine Centrifuged Low vol <10ml (spun) A A.calcoaceticus-baumannii cmplx PCR (Not Detect) Chlamy pneumoniae PCR (Not Detect) Adenovirus (PCR) (Not Detect) Bacteroides fragilis (Not Detect) B. pertussis DNA (PCR) (Not Detect) B.parapertussis DNA PCR (Not Detecte) Linh albicans (PCR) (Not Detect) [place] auris (PCR) (Not Detect) C. glabrata (PCR) (Not Detect) C. krusei (PCR) (Not Detect) C. parapsilosis (PCR) (Not Detect) C. tropicalis (PCR) (Not Detect) Coronavirus OC43 (PCR) (Not Detect) Coronavirus HKU1 (PCR) (Not Detect) Coronavirus 229E (PCR) (Not Detect) SARS-CoV-2 (PCR) (Not Detecte) Coronavirus NL63 (PCR) (Not Detect) C. neoform/gattii (PCR) (Not Detect) Enterobacterales (PCR) (Not Detect) E. cloacae complex PCR (Not Detect) Enterococc faecalis PCR (Not Detect) Enterococc faecium PCR (Not Detect) E. coli (PCR) (Not Detect) H. influenzae (PCR) (Not Detect) Human Metapneumovir PCR (Not Detect) Influenza Type A (PCR) (Not Detect) Influenza Type B (PCR) (Not Detect) Klebsiella aerogenes (PCR) (Not Detect) Klebsiella oxytoca PCR (Not Detect) Klebsiella pneumoniae (Not Detect) List. monocytogenes PCR (Not Detect) M. pneumoniae (PCR) (Not Detect) N. meningitidis (PCR) (Not Detect) Parainfluenza 1 (PCR) (Not Detect) Parainfluenza 2 (PCR) (Not Detect) Parainfluenza 3 (PCR) (Not Detect) Parainfluenza 4 (PCR) (Not Detect) Proteus species (PCR) (Not Detect) RSV (PCR) (Not Detect) Entero/Rhino (PCR) (Not Detect) Salmonella spp. (PCR) (Not Detect) Serratia marcescens PCR (Not Detect) Staphylococcus sp PCR (Not Detect) Staph aureus (PCR) (Not Detect) mecA/C & MREJ Resist Gene (Not Detect) mecA/C-Methicil Resis Gene (Not Detect) mcr-1 Colistin Res Gene PCR (Not Detect) Staph epidermidis (PCR) (Not Detect) Staph lugdunensis PCR (Not Detect) S. maltophilia (PCR) (Not Detect) Streptococcus sp PCR (Not Detect) Group A Strep (PCR) (Not Detect) Strep agalactiae (PCR) (Not Detect) Strep pneumoniae (PCR) (Not Detect) P. aeruginosa (PCR) (Not Detect) Nickolas/B-Vanco Res Genes (Not Detect) blaIMP Car res Gene PCR (Not Detect) KPC-Carbap Res Gene PCR (Not Detect) blaNDM Car Res Gene PCR (Not Detect) OXA-48 Carbapenem Resis Gene (PCR) (Not Detect) blaVIM Car Res Gene PCR (Not Detect) CTX-M Gene Resistance (PCR) (Not Detect) 05/08/25 05/09/25 Range/Units 20:18 20:08 WBC (4.5-11.0) X10^3/uL RBC (4.5-5.9) X10^6/uL Hgb (13.5-17.5) g/dL Hct (41-53) % MCV (80-100) fL MCH (26-34) PG MCHC (30-36) % RDW (11.6-14.8) % Plt Count (150-400) X10^3/uL Neut % (Auto) (50-75) % Lymph % (Auto) (25-40) % [place] % (Auto) (3-14) % Eos % (Auto) (2-4) % Baso % (Auto) (0-2) % Neut # (Auto) (3843-7051) /uL Lymph # (Auto) (8408-2610) /uL [place] # (Auto) (0-900) /uL Eos # (Auto) (0-450) /uL Baso # (Auto) (0-100) /uL PT (9.4-12.5) SECONDS INR (0.9-1.3) APTT (25.1-36.5) SECONDS VBG pH (7.33-7.43) VBG pCO2 (45-50) mmHg VBG pO2 (35-45) mmHg VBG HCO3 (24-28) mmol/L VBG Total CO2 (24-29) mmol/L VBG O2 Saturation (70-75) % VBG Base Excess (0-4) mmol/L FiO2 % % Sodium (137-145) mmol/L Potassium (3.4-5.1) mmol/L Chloride (98-107) mmol/L Carbon Dioxide (22-32) mmol/L BUN (9-20) mg/dL Creatinine (0.66-1.25) mg/dL Estimated GFR (>60) mL/min BUN/Creatinine Ratio (6-22) Glucose (70-99) mg/dL Lactate (0.7-2.1) mmol/L Calcium (8.4-10.2) mg/dL Total Bilirubin (0.2-1.3) mg/dL AST (17-59) IU/L ALT (<50) IU/L Alkaline Phosphatase (38-126) U/L Total Protein (6.3-8.2) g/dL Albumin (3.5-5.0) g/dL Globulin (1.7-4.1) g/dL Albumin/Globulin Ratio (1.0-2.8) Procalcitonin (<0.5) ng/mL Urine Color Urine Appearance Urine pH Ur Specific [place] Urine Protein Urine Glucose (UA) Urine Ketones Urine Occult Blood Urine Nitrate Urine Bilirubin Urine Urobilinogen Ur Leukocyte Esterase Urine RBC (0-5/HPF) Urine WBC (0-5/HPF) Ur Squamous Epith Cells (0-5/HPF) Urine Bacteria (None) Urine Mucus (Negative) Ur Culture Indicated? Vol Urine Centrifuged A.calcoaceticus-baumannii cmplx PCR Not detected (Not Detect) Chlamy pneumoniae PCR Not detected (Not Detect) Adenovirus (PCR) Not detected (Not Detect) Bacteroides fragilis Not detected (Not Detect) B. pertussis DNA (PCR) Not detected (Not Detect) B.parapertussis DNA PCR Not detected (Not Detecte) Linh albicans (PCR) Not detected (Not Detect) Linh auris (PCR) Not detected (Not Detect) C. glabrata (PCR) Not detected (Not Detect) C. krusei (PCR) Not detected (Not Detect) C. parapsilosis (PCR) Not detected (Not Detect) C. tropicalis (PCR) Not detected (Not Detect) Coronavirus OC43 (PCR) Not detected (Not Detect) Coronavirus HKU1 (PCR) Detected H (Not Detect) Coronavirus 229E (PCR) Not detected (Not Detect) SARS-CoV-2 (PCR) Not detected (Not Detecte) Coronavirus NL63 (PCR) Not detected (Not Detect) C. neoform/gattii (PCR) Not detected (Not Detect) Enterobacterales (PCR) Not detected (Not Detect) E. cloacae complex PCR Not detected (Not Detect) Enterococc faecalis PCR Not detected (Not Detect) Enterococc faecium PCR Not detected (Not Detect) E. coli (PCR) Not detected (Not Detect) H. influenzae (PCR) Not detected (Not Detect) Human Metapneumovir PCR Not detected (Not Detect) Influenza Type A (PCR) Not detected (Not Detect) Influenza Type B (PCR) Not detected (Not Detect) Klebsiella aerogenes (PCR) Not detected (Not Detect) Klebsiella oxytoca PCR Not detected (Not Detect) Klebsiella pneumoniae Not detected (Not Detect) List. monocytogenes PCR Not detected (Not Detect) M. pneumoniae (PCR) Not detected (Not Detect) N. meningitidis (PCR) Not detected (Not Detect) Parainfluenza 1 (PCR) Not detected (Not Detect) Parainfluenza 2 (PCR) Not detected (Not Detect) Parainfluenza 3 (PCR) Not detected (Not Detect) Parainfluenza 4 (PCR) Not detected (Not Detect) Proteus species (PCR) Not detected (Not Detect) RSV (PCR) Not detected (Not Detect) Entero/Rhino (PCR) Not detected (Not Detect) Salmonella spp. (PCR) Not detected (Not Detect) Serratia marcescens PCR Not detected (Not Detect) Staphylococcus sp PCR Not detected (Not Detect) Staph aureus (PCR) Not detected (Not Detect) mecA/C & MREJ Resist Gene Not applicable (Not Detect) mecA/C-Methicil Resis Gene Not applicable (Not Detect) mcr-1 Colistin Res Gene PCR Not applicable (Not Detect) Staph epidermidis (PCR) Not detected (Not Detect) Staph lugdunensis PCR Not detected (Not Detect) S. maltophilia (PCR) Not detected (Not Detect) Streptococcus sp PCR Not detected (Not Detect) Group A Strep (PCR) Not detected (Not Detect) Strep agalactiae (PCR) Not detected (Not Detect) Strep pneumoniae (PCR) Not detected (Not Detect) P. aeruginosa (PCR) Not detected (Not Detect) Nickolas/B-Vanco Res Genes Not applicable (Not Detect) blaIMP Car res Gene PCR Not applicable (Not Detect) KPC-Carbap Res Gene PCR Not applicable (Not Detect) blaNDM Car Res Gene PCR Not applicable (Not Detect) OXA-48 Carbapenem Resis Gene (PCR) Not applicable (Not Detect) blaVIM Car Res Gene PCR Not applicable (Not Detect) CTX-M Gene Resistance (PCR) Not applicable (Not Detect) Imaging Data CT chest abdomen pelvis: Radiologist's Impression: [address] [address] [address] Scan Report Signed Patient: Jozef Quintero MR#: [id number] : 1965 Acct:[id number] Age/Sex: 59 / M Date of Service: 05/08/25 Loc: ED Accession Number: [id number] Procedure: CT chest abd pel w con Ordering Provider: Dilip Del Toro MD PROCEDURE: CT CHEST ABD PEL W CON INDICATIONS: Sepsis TECHNIQUE: After the administration of intravenous contrast, 5 mm thick sections acquired from the lung apices to the symphysis. 5 mm coronal and sagittal reformats were performed, with additional 7 mm MIP reformats through the lungs. For radiation dose reduction, the following was used: automated exposure control, adjustment of mA and/or kV according to patient size. COMPARISON: [facility], CT, CT CHEST ABD PEL W CON, 11/29/2024, 8:37. FINDINGS: Image quality: Excellent. CHEST: Lower Neck: No enlarged lymph nodes. Thyroid: No thyroid nodules which require sonographic follow up, per consensus guidelines. Axillae: No enlarged lymph nodes. Chest Wall: Unremarkable. Lungs and Pleura: No pneumothorax or pleural effusions. No consolidation or suspicious nodules. Heart: Heart size is normal. No pericardial effusion. Thoracic Vessels: The aorta and pulmonary arteries demonstrate normal size. Mediastinum and [place]: No enlarged lymph nodes. Esophagus: No wall thickening. No hiatal hernia. ABDOMEN: Liver: No solid mass. Gallbladder: No radiopaque gallstones or wall thickening. Biliary ducts: No biliary dilation. Pancreas: No ductal dilation. Spleen: Size is within normal limits. Adrenal Glands: No adrenal nodules. Kidneys and Ureters: No hydronephrosis. No solid mass. No complex renal cystic lesion which requires follow up. Stomach and Bowel: Normal colonic caliber, without significant wall thickening. Peritoneum: Prominent free air is identified within the abdomen and pelvis. Prominent cluster is present in the left pelvic sidewall. However, air is present within the non dependent upper abdomen excluding into the subcutaneous fat at the level the ventral hernia. There is scattered free fluid within the central pelvis. Largest more localized fluid is in the right lower pelvis measuring 1.4 cm. Ventral Wall: Fat containing ventral hernia. Abdominal Nodes: No retroperitoneal or mesenteric adenopathy by size criteria. Vessels: Aorta and inferior vena cava are normal in size. PELVIS: Pelvic Organs: Unremarkable. Bladder: Air is noted within the bladder wall. Taylor catheter is present. Pelvic Nodes: No enlarged lymph nodes. Miscellaneous: Bilateral fat containing inguinal hernias. Air is present within the inguinal hernia most prominent on the left. Bones: No aggressive osseous abnormality. IMPRESSION: Prominent free air within the abdomen and pelvis. It is noted that patient is status post recent prostate surgery. This could be postoperative. However, given appearance of scattered fluid, other etiology such as bowel perforation cannot be definitively excluded. Recommend continued interval follow-up for development of abscess as clinically indicated. Air is present within the bladder wall, again likely related to recent surgery. The above findings were discussed with Dr. Dilip Del Toro on 05/08/2025 at 9:46 p.m. Dictated by: Jana Castellanos M.D. on 05/08/2025 at 21:40 Approved by: Jana Castellanos M.D. on 05/08/2025 at 21:48 [facility] Narrative Medical decision making narrative: Patient brought in by ambulance from home. Patient is postop day 3 status post laparoscopic prostatectomy at [facility]. Local urologist here sent patient here for the procedure. Patient being treated for prostate cancer. History of MT in the past. History of cardiac stents. Patient is Cardiology Dr. Stover with [facility]. Patient does have Taylor catheter in place. Vital signs noted tachycardia and fever. Took fever medication at 6:00 p.m. prior to arrival. MDM After history and exam, CBC CMP blood culture urine culture procalcitonin lactic acid CT chest abdomen pelvis normal saline Zosyn EKG Differential considered: Includes but not limited to sepsis UTI pyelonephritis Medical records reviewed: Urology office visit January 05, 2025 Lab Test results independently reviewed as above. Pertinent findings: WBC 6.8 hemoglobin 9.0 hematocrit 26 INR 1.1 VBG 7.38, 34, 50 bicarb 20, sodium 133 BUN 34 creatinine 1.29 procalcitonin 0.268 lactic acid 1.6, positive coronavirus Independently reviewed EKG sinus tachycardia rate 119 Imaging studies independently reviewed: CT chest abdomen pelvis extents of free air in the abdomen Consultations: 9:45 p.m.. I did speak with General surgery here at this hospital, Dr. Heart, who will review CT imaging and call back. 9:55 p.m.. I spoke with Dr. Heart, retroperitoneal free air is unusual. Unusual for perforation. Would recommend transferred to [facility] 10:56 p.m.. [address] spoke with Dr. eB, [facility] urology. His service would take patient pending bed availability. Re-evaluations: 9:50 p.m.. Updated patient results and waiting for disposition per General surgery transfer or admit. Pain is controlled at this time. Reviewed with them positive coronavirus Discussion: IV contrast used for CT imaging. Diagnosis: Postoperative abdominal pain 11:[address] Del Toro: Sign-out to Dr. Gomez patient has been accepted to the [facility] pending a bed availability. However it may be a long wait. Urologist did request if patient is still here in the morning would recommend general surgeon see patient in person. Dr. Heart was contacted here tonight. We will need repeat dosing of Zosyn Discharge Plan Departure Patient Disposition: [facility] Clinical Impression: Postoperative abdominal pain, Coronavirus infection, unspecified Prescriptions: No Action clotrimazole-betamethasone 1-0.05 % cream 1 applic topical BID Qty: 45 1RF lisinopril 5 mg tablet 5 mg PO DAILY atorvastatin 80 mg tablet 80 mg PO ONCE PM aspirin 81 mg tablet,chewable 81 mg PO DAILY metoprolol succinate 50 mg tablet extended release 24 hr 50 mg PO BID Qty: 180 3RF acetaminophen 500 mg tablet 500 mg PO ibuprofen 600 mg tablet PO oxycodone 5 mg tablet PO Referrals: Dorian Bartholomew DO [Primary Care Provider, Family Practice]
[2025-05-08] MEDS: SODIUM CHLORIDE 0.9% 1,000 ML 1000 ML IV (20:00)
[2025-05-08 20:18] LABS: Base Excess VBG -4.4 mmol/L (0-4); HCO3 VBG 20 mmol/L (24-28); Oxygen Saturation VBG 85 % (70-75); PCO2 VBG 34.2 mmHg (45-50); PO2 VBG 50 mmHg (35-45); Total CO2 VBG 19 mmol/L (24-29); pH VBG 7.38 (7.33-7.43)
[2025-05-08 20:23] LABS: Add Manual Diff / Slide Review NO; Hematocrit 26.2 % (41-53); Hemoglobin 9.0 g/dL (13.5-17.5); Lymphocytes Absolute Auto 300 /uL (1100-4500); Mean Corpuscular HGB Conc 34.5 % (30-36); Mean Corpuscular Hemoglobin 35.8 PG (26-34); Mean Corpuscular Volume 103.5 fL (80-100); Platelet Count 123 X10^3/uL (150-400)
[2025-05-08] MEDS: PIPERACILLIN/TAZO 4.5 GM in SODIUM CHLORIDE 0.9% 100 ML IV (20:27)
[2025-05-08 20:29] LABS: Appearance Urine UA Slightly Cloudy; Color Urine UA ORANGE
[2025-05-08 20:30] LABS: Culture Indicated Urine Cult Not Indicated
--- NOTE | 2025-05-08 20:30 | PC.NURSE ---
antibiotics delayed d/t difficulty getting blood for labs and blood cultures
[2025-05-08 20:32] LABS: INR 1.1 (0.9-1.3); Prothrombin Time 12.1 SECONDS (9.4-12.5)
[2025-05-08 20:35] LABS: PTT Partial Thromboplastin Tim 26 SECONDS (25.1-36.5)
[2025-05-08 20:40] LABS: Lactate (Lactic Acid) 1.6 mmol/L (0.7-2.1)
[2025-05-08 20:41] LABS: Alanine Aminotransferase 32 IU/L (<50); Albumin 3.8 g/dL (3.5-5.0); Albumin Globulin Ratio 1.5 (1.0-2.8); Alkaline Phosphatase 141 U/L (38-126); Blood Urea Nitrogen 34 mg/dL (9-20); Calcium 8.4 mg/dL (8.4-10.2); Carbon Dioxide 18 mmol/L (22-32); Chloride 105 mmol/L (98-107); Estimated Glomerular Filt Rate > 60 mL/min (>60); Globulin 2.5 g/dL (1.7-4.1); Glucose 113 mg/dL (70-99); HEMOLYSIS < 15 (0-50); Potassium 4.5 mmol/L (3.4-5.1); Sodium 133 mmol/L (137-145); Total Protein 6.3 g/dL (6.3-8.2)
[2025-05-08 21:00] LABS: Procalcitonin 0.268 ng/mL (<0.5)
[2025-05-08 21:17] LABS: Coronavirus NL 63 Not Detected (Not Detect); SARS- CoV-2 Not Detected (Not Detecte)
[2025-05-08] MEDS: ONDANSETRON 4 MG/2 ML INJ IV (21:19)
[2025-05-08] MEDS: MORPHINE 4 MG/ML INJ IV ×2 (21:20→22:58)
--- NOTE | 2025-05-08 21:24 | EKG_ITS ---
[address] [address] Test Date: 2025-05-08 Pat Name: Jozef Quintero Department: [facility] Room: Gender: Male [employer]: ANITA : 1965 Requested By: Order Number: [id number] Reading MD: Measurements Intervals [place] Rate: 119 P: 55 HI: 174 QRS: -42 QRSD: 80 T: 73 QT: 318 QTc: 447 Interpretive Statements Sinus tachycardia Left axis deviation Low voltage QRS Inferior infarct , age undetermined Cannot rule out Anteroseptal infarct , age undetermined
[2025-05-08] MEDS: ACETAMINOPHEN IV 1,000 MG/100 ML VIAL 400 MG IV (21:26)
--- NOTE | 2025-05-08 21:38 | PC.NURSE ---
pt c/o increasing pain in the left flank pain that radiates down into the groin area and left testicle
[2025-05-09] VITALS (25 sets, daily range): BP systolic 96–122; BP diastolic 55–67; PULSE 96–110; RESP 12–34; O2SAT 66–100
[2025-05-09] MEDS: SODIUM CHLORIDE 0.9% 1,000 ML 125 ML IV
--- NOTE | 2025-05-09 02:35 | PC.NURSE ---
pt moved to 4 and placed on a hospital bed for comfort, ice chips, and warm blanket given, lights dimmed and pt medicated for pain
[2025-05-09] MEDS: MORPHINE 4 MG/ML INJ IV ×3 (02:40→10:10)
[2025-05-09] MEDS: PIPERACILLIN/TAZO 3.375 GM in SODIUM CHLORIDE 0.9% 100 ML IV (03:25)
[2025-05-09 06:31] LABS: Acinetobacter calcoa-baumannii Not Detected (Not Detect); Bacteroides fragilis Not Detected (Not Detect); Candida auris Not Detected (Not Detect); Candida glabrata Not Detected (Not Detect); Cryptococcus neoformans/gatti Not Detected (Not Detect); Enterobacterales Not Detected (Not Detect); Enterococcus faecalis Not Detected (Not Detect); Enterococcus faecium Not Detected (Not Detect); Klebsiella aerogenes Not Detected (Not Detect); Proteus species Not Detected (Not Detect); Serratia marcescens Not Detected (Not Detect); Staphylococcus epidermidis Not Detected (Not Detect); Staphylococcus lugdunensis Not Detected (Not Detect); Staphylococcus species Not Detected (Not Detect); Stenotrophomonas maltophilia Not Detected (Not Detect); Streptococcus agalactiae (Gr B Not Detected (Not Detect); Streptococcus pneumonia Not Detected (Not Detect); Streptococcus pyogenes (Gr A) Not Detected (Not Detect); Streptococcus species Not Detected (Not Detect)
--- NOTE | 2025-05-09 06:44 | PC.NURSE ---
report received from lab one anaerobic bottle gm + bacilli, unable to identify type at this time Dr Gomez informed
--- NOTE | 2025-05-09 11:48 | PC.NURSE ---
surgery sites from surgery noted to be intact however abdomen significantly distended and having pain all throughout. abdomen firm. bruising noted to rlq, deep purple. other bruising noted in various healing stages to the rest of abdomen.
--- NOTE | 2025-05-09 12:24 | PC.NURSE ---
attempted to call report to rn at [facility] and they stated that the rn will call back after checking in with nurse in charge
== END 2025-05-09 12:41 | disposition short-term general hospital (02) ==
PROVIDERS: Emergency Medicine; Emergency Provider Student in an Organized Health Care Education/Training Program; Family Provider Family Medicine; PCP Family Medicine
DX: G89.18 Other acute postprocedural pain (principal); R00.0 Tachycardia, unspecified; R10.9 Unspecified abdominal pain; B34.2 Coronavirus infection, unspecified; R93.5 Abnormal findings on diagnostic imaging of other abdominal regions, including retroperitoneum
CPT/HCPCS: 36415; 71260; 74177; 80053; 81001; 82805; 83605; 84145; 85025; 85610; 85730; 87040; 87154; 87633; 93005; 96365; 96366; 96375; 96376; 99284; J0131; J2272; J2405; J2543; J7030; J7050; Q9967